=== PATIENT | male | born 2000 | race Two or more races ===

== ENCOUNTER 2020-04-06 07:25 | Outpatient (CLI) | payer OTHER, SELFPAY ==
--- NOTE | ~2020-04-06 | US_ITS ---
EXAMINATION: US retroperitoneal duplex ltd DATE: 04/06/2020 08:16 INDICATION: Hypertension. TECHNIQUE: Multiple grayscale, color Doppler, and pulsed Doppler images of the kidneys and renal lili keo were obtained. COMPARISON: None. FINDINGS: The aorta peak systolic velocity is 128 cm/s. The right renal artery peak systolic velocity is 105 cm /s in the proximal segment, 96 cm/s in the mid segment, and 84 cm/s in the distal segment. The left r enal artery peak systolic velocity is 62 cm/s in the proximal segment, 77 cm/s in the mid segment, an d 69 cm/s in the distal segment. IMPRESSION: 1. No Doppler evidence of renal artery stenosis. Reviewed, dictated and finalized at location A.
== END 2020-04-06 07:26 | disposition home or self-care (01) ==
PROVIDERS: PCP Family Medicine; Visit Provider Family Medicine
DX: I10 Essential (primary) hypertension (principal)
CPT/HCPCS: 93976

== ENCOUNTER 2020-04-13 12:34 | Outpatient (CLI) | payer OTHER, SELFPAY ==
--- NOTE | 2020-04-13 | ECHO_ITS ---
Patient Info Name: Fátima Medina Age: 20 years : 2000 Gender: Male Ht: 66 in Wt: 154 lbs BSA: 1.81 m2 HR: 75 bpm BP: 165 / 88 mmHg Heart Rhythm: Sinus Rhythm Technical Quality: Good Exam Date: 04/13/2020 1:08 PM Exam Location: [facility] Patient Status: Outpatient Admit Date: 04/13/2020 Staff Ordering Physician: Adam, Wayne GUTIERREZ Table Worker: Ke Ball, HEIDY, RT Attending Provider: Adam, Wayne GUTIERREZ Exam Type: CA echo doppler color flow Study Info Indications I10 - Essential (primary) hypertension Complete two-dimensional, color flow and Doppler transthoracic echocardiogram is performed. Summary 1. Complete two-dimensional, color flow and Doppler transthoracic echocardiogram is performed. 2. Left ventricular systolic function is normal, estimated at 60-65%. 3. There is no increased left ventricular wall thickness. 4. The left ventricular diastolic function is normal. 5. Global longitudinal strain is normal at -20 %. 6. Unable to estimate PA systolic pressure due to poor spectral resolution of tricuspid regurgitant jet velocity. 7. There is trace tricuspid valve regurgitation. Left Ventricle Left ventricular chamber dimension is normal. Left ventricular systolic function is normal, estimated at 60-65%. There is no increased left ventricular wall thickness. The left ventricular diastolic function is normal. Global longitudinal strain is normal at -20 %. Right Ventricle Right ventricular chamber dimension is normal. Right ventricular systolic function is normal. Left Atria Left atrial chamber dimension is normal. Right Atria Right atrial chamber dimension is normal. Aortic Valve The aortic valve is probable trileaflet. There is no aortic valve stenosis. There is no aortic valve regurgitation. Pulmonic Valve The pulmonic valve is normal. There is no pulmonic regurgitation. Mitral Valve The mitral valve has normal leaflets. There is trace mitral valve regurgitation. Tricuspid Valve The tricuspid valve leaflets are normal. There is trace tricuspid valve regurgitation. Unable to estimate PA systolic pressure due to poor spectral resolution of tricuspid regurgitant jet velocity. Pericardium/Pleural The pericardium appears normal. There is no pericardial effusion. Inferior Vena Cava Normal inferior vena cava with >50% collapse upon inspiration consistent with normal right atrial pressure, 5 mmHg. Aorta The aortic root size at the sinus of Valsalva is normal. Left Ventricular Outflow Tract Name Value Normal LVOT 2D LVOT Diameter 2.0 cm LVOT Doppler LVOT Peak Gradient 7 mmHg LVOT Mean Gradient 4 mmHg LVOT VTI 26 cm LVOT VTI/AV VTI Ratio 1.0 LVOT Stroke Volume 77 ml LVOT CO 5.7 l/min LVOT CI 3.1 l/min/m2 Mitral Valve Name
== END 2020-04-13 12:35 | disposition home or self-care (01) ==
PROVIDERS: PCP Family Medicine; Visit Provider Family Medicine
DX: I10 Essential (primary) hypertension (principal)
CPT/HCPCS: 93306

== ENCOUNTER 2022-03-02 16:26 | Emergency (ER) | payer OTHER, SELFPAY ==
[2022-03-02 16:39] VITALS: BP 148/77; PULSE 73; RESP 16; TEMP 37.2; O2SAT 100
--- NOTE | 2022-03-02 16:51 | PC.NURSE ---
eye kit at bedside.
--- NOTE | 2022-03-02 17:58 | ED.EYEPROB ---
HPI - Eye Problem General Chief complaint: Eye Problems Stated complaint: left eye watery Time Seen by Provider: 03/02/22 17:46 Source: patient, RN notes reviewed and old records reviewed Mode of arrival: ambulatory Limitations: no limitations History of Present Illness HPI Narrative: 22 year old male [facility] complaints of redness, irritation and discomfort to his left eye which started after he took his contacts out last night. Patient denies any know trauma or any known foreign body to his left eye, denies any sharp pain to his left eye . Patient notes excessive watering to his left eye with redness of sclera and uper eyelid with some discomfort and photophobia. Patient is wearing his glasses with visual acuity 20/20 bilaterally on exam.Left eye started last night after he took off contact MD chief complaint: eye pain and eye redness Onset (ago): hour(s) (last evening) Location: left eye Severity scale (1-10): 8 (burning with light sensitivity) Related Data Allergies Allergy/AdvReac Type Severity Reaction Status Date / Time No Known Allergies Allergy Verified 03/02/22 16:41 Review of Systems Review of Systems: CONSTITUTIONAL: Denies fever, chills, or sweats. EYES: Denies visual changes,positive for redness, or watery discharge, some photophobia ENT: Denies rhinorrhea, congestion, sore throat, or otalgia. CARDIOVASCULAR: Denies chest pain, palpitations, or edema. RESPIRATORY: Denies cough or dyspnea. GASTROINTESTINAL: Denies abdominal pain, nausea, vomiting, or diarrhea. GENITOURINARY: Denies dysuria or hematuria. SKIN: Denies rash or itching. MUSCULOSKELETAL: Denies back pain, joint pain, or myalgia. NEUROLOGIC: Denies headache, numbness, or weakness. PSYCHIATRIC: Denies anxiety or depression. All systems reviewed & are unremarkable except as noted in HPI and below PMFSH Past Medical History Medical History (Updated 03/04/22 @ 07:57 by Karina Avendano NP) Hypertension Social History Social History (Updated 03/04/22 @ 07:58 by Karina Avendano NP) Smoking status: Never smoker Alcohol intake: current Alcohol use details: rare social Substance use: never Gender identity (if verbalized by the patient): Male Comments At time of signature, agree with nursing past medical, surgical, social and family history. There is no relevant family history pertinent to the presenting complaint Exam Narrative: GENERAL: Well-appearing, well-nourished, and in no acute distress. HEAD: Normocephalic, atraumatic. EYES: PERRLA and EOMI.left eye is red with excessive watering, photophobia,irritated, some mild swelling to eyelid, denies any visual changes ENT: Nares clear, no rhinorrhea or epistaxis. Mucous membranes moist. TM's normal with good light reflex, throat pink no lesions or swelling present NECK: Supple.no lymphadenopathy CHEST: Clear to auscultation. No respiratory distress.SAO2 100% on room air HEART: Regular rate and rhythm. No murmur heard. Normal peripheral pulses. ABDOMEN: Soft, nontender, nondistended, normal active bowel sounds. EXTREMITIES: Normal range of motion. No edema. SKIN: Warm, dry, no rash. NEURO: No focal deficits. Alert and oriented x3. Course Course Level of Care: Express Care Visit Vital Signs Vital signs: Vital Signs Temperature 37.2 C 03/02/22 16:39 Pulse Rate 73 03/02/22 16:39 Respiratory Rate 16 03/02/22 16:39 Blood Pressure 148/77 H 03/02/22 16:39 Pulse Oximetry 100 03/02/22 16:39 Oxygen Delivery Room Air 03/02/22 16:39 Temperature 37.2 C 03/02/22 16:39 Pulse Rate 73 03/02/22 16:39 Respiratory Rate 16 03/02/22 16:39 Blood Pressure 148/77 H 03/02/22 16:39 Pulse Oximetry 100 03/02/22 16:39 Oxygen Delivery Room Air 03/02/22 16:39 Procedures FB Removal Eye Foreign Body #1: Foreign Body Removal Date: 03/02/22 Foreign Body Removal Time: 18:00 Time Out performed: Yes Location: eye (L)
--- NOTE | 2022-03-02 18:07 | PC.NURSE ---
[employer] in with pt to do eye exam.
== END 2022-03-02 18:20 | disposition home or self-care (01) ==
PROVIDERS: Emergency Provider Registered Nurse; PCP Family Medicine
DX: S05.02XA Injury of conjunctiva and corneal abrasion without foreign body, left eye, initial encounter (principal); X58.XXXA Exposure to other specified factors, initial encounter; I10 Essential (primary) hypertension
CPT/HCPCS: 99213; A9270; G0463

== ENCOUNTER 2022-10-31 07:26 | Emergency (ER) | payer OTHER, SELFPAY ==
[2022-10-31 07:52] VITALS: BP 149/75; PULSE 90; RESP 18; TEMP 36.7; O2SAT 100
[2022-10-31 07:55] VITALS: BP 149/75; PULSE 90; RESP 18; TEMP 36.7; O2SAT 100
--- NOTE | 2022-10-31 08:48 | ED.SKABFB ---
HPI - Skin/Abscess/Foreign Bdy General Chief complaint: Skin/Abscess/Foreign Body Stated complaint: bump near tailbone x 2 days Time Seen by Provider: 10/31/22 07:34 History of Present Illness HPI narrative: Patient is a 22-year-old male who presents ER with a bump near his tailbone. Growing over the last 2 to 3 days. Began after going to a [employer] game and sitting on a hard seat. No drainage. No fevers or chills or sweats. Was started on Bactrim DS by his PCP yesterday. No difficulty with defecation. Related Data Allergies Allergy/AdvReac Type Severity Reaction Status Date / Time No Known Allergies Allergy Verified 10/31/22 08:41 Review of Systems Review of Systems: All systems reviewed & are unremarkable except as noted in HPI and below Constitutional: Constitutional: Denies chills and Denies fever(s) Integumentary/Breasts: Skin/Breast: Reports erythema and Denies rash Comments: gluteal abscess PMFSH Past Medical History Medical History (Updated 10/31/22 @ 08:49 by Dami Davis MD) Hypertension Surgical History Surgical History (Updated 10/31/22 @ 09:17 by Dami Davis MD) No pertinent past surgical history Social History Social History (Updated 03/04/22 @ 07:58 by Karina Avendano NP) Smoking status: Never smoker Alcohol intake: current Alcohol use details: rare social Substance use: never Gender identity (if verbalized by the patient): Male Exam Narrative: GENERAL: Well-appearing, well-nourished, and in no acute distress. HEAD: Normocephalic, atraumatic. EXTREMITIES: Normal range of motion. No edema. SKIN: Warm, dry, no rash. Pilonidal cyst with tenderness and erythema just left of the gluteal cleft. NEURO: Alert and oriented x3. PSYCH: Normal mood and affect. Course Course Emergency Course: Patient tolerated incision and drainage. Continue antibiotics, remove packing in 2 days, follow-up with surgery. Patient and family verbalized understanding. Vital Signs Vital signs: Vital Signs Temperature 98.1 F 10/31/22 07:52 Pulse Rate 90 10/31/22 07:52 Respiratory Rate 18 10/31/22 07:52 Blood Pressure 149/75 H 10/31/22 07:52 Pulse Oximetry 100 10/31/22 07:52 Oxygen Delivery Room Air 10/31/22 07:52 Temperature 98.1 F 10/31/22 07:52 Pulse Rate 90 10/31/22 07:52 Respiratory Rate 18 10/31/22 07:52 Blood Pressure 149/75 H 10/31/22 07:52 Pulse Oximetry 100 10/31/22 07:52 Oxygen Delivery Room Air 10/31/22 07:52 Procedures Abscess I/D other: Date of Incision: 10/31/22 Time of Incision: 08:30 Local Anesthetic: lidocaine 1% Amount of anesthesia used (mL): 6 Technique: incised with #11 blade Packing used?: plain I&D Results: Pus Abcess I&D Additional Comments: Pilonidal Discharge Plan Discharge Clinical Impression: Pilonidal cyst with abscess Patient Disposition: Home, Self-Care Condition: Stable Instructions: Antibiotic Form, Pilonidal Cyst (ED) Additional Instructions: You have an inflamed and infected pilonidal cyst that was drained in the ER today. Remove the packing in 2 days. Continue the antibiotic you are prescribed. Take Tylenol with hydrocodone as needed for pain. Follow-up with general surgery for further treatment evaluation. Prescriptions: New hydrocodone-acetaminophen 5-325 mg tablet 1 tablet PO Q6H PRN (Reason: pain) Qty: 10 0RF docusate sodium 100 mg capsule 100 mg PO DAILY Qty: 7 0RF No Action ofloxacin 0.3 % drops See Rx Instructions .ROUTE .COMPLEX Qty: 10 0RF Rx Instructions: put 1-2 drps into affected eye(s) every 2-4 h x 2 days, then 1-2 drps 4 times/day days 3-7 Follow-up/Referrals: Chico Knutson MD [Physician] - 1 Week Medina,MD Wayne [Primary Care Provider] - Stand Alone Forms: Work/School Release IP
[2022-10-31 09:17] VITALS: BP 138/72; PULSE 93; RESP 18
== END 2022-10-31 09:14 | disposition home or self-care (01) ==
PROVIDERS: Emergency Provider Emergency Medicine; PCP Family Medicine
DX: L05.01 Pilonidal cyst with abscess (principal); I10 Essential (primary) hypertension
CPT/HCPCS: 10080; 99283